=== PATIENT | male | born 2000 | race American Indian/Alaskan Native ===

== ENCOUNTER 2018-01-06 18:41 | Emergency (ER) | payer OTHER ==
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
[2018-01-06] MEDS ORDERED: NORCO 5/325 PO ONE (21:50)
[2018-01-06] MEDS ORDERED: AUGMENTIN 875 MG PO ONE (21:50)
[2018-01-06] MEDS ORDERED: BOOSTRIX IM ONE (21:50)
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
[2018-01-06 22:16] VITALS: BP 118/72
== END 2018-01-06 22:14 | disposition home or self-care (01) ==
LOC: ED 18:41
DX: S62.524A Nondisplaced fracture of distal phalanx of right thumb, initial encounter for closed fracture (principal); Z72.0 Tobacco use; W50.3XXA Accidental bite by another person, initial encounter; Y93.89 Activity, other specified; Y99.8 Other external cause status; Y92.488 Other paved roadways as the place of occurrence of the external cause
CPT/HCPCS: 90471; 90715